=== PATIENT | male | born 1930 | race Caucasian/White ===

== ENCOUNTER 2016-06-13 10:41 | Day surgery (SDC) | payer MEDICARE ==
[2016-06-13] MEDS ORDERED: BUPIVACAINE HCL 0.5% MPF 10 ML SOL ONE (11:42)
[2016-06-13] MEDS ORDERED: TRIAMCINOLONE ACETONIDE 40 MG/ML SUS ONE (11:42)
[2016-06-13 12:14] VITALS: BP 159/70; PULSE 71; RESP 20; TEMP 98.3; O2SAT 97
== END 2016-06-13 12:25 | disposition home or self-care (01) | DRG 552 ==
LOC: SURG 10:41
PROVIDERS: ATTEND Nurse Anesthetist, Certified Registered
DX: M53.3 Sacrococcygeal disorders, not elsewhere classified (principal)
CPT/HCPCS: G0260; J3300

== ENCOUNTER 2016-08-15 11:49 | Day surgery (SDC) | payer MEDICARE ==
[2016-06-13 12:14] VITALS: O2SAT 97
[2016-08-15 12:39] VITALS: BP 130/75; PULSE 72; RESP 16; TEMP 97.8
== END 2016-08-15 13:00 | disposition home or self-care (01) | DRG 951 ==
LOC: SURG 11:49
PROVIDERS: ATTEND Nurse Anesthetist, Certified Registered
DX: Z53.09 Procedure and treatment not carried out because of other contraindication (principal)

== ENCOUNTER 2016-08-29 12:47 | Day surgery (SDC) | payer MEDICARE ==
[2016-08-29] MEDS ORDERED: TRIAMCINOLONE ACETONIDE 40 MG/ML SUS ONE (13:23)
[2016-08-29] MEDS ORDERED: LIDOCAINE HCL 1% MPF SOL ONE (13:35)
[2016-08-29 13:48] VITALS: BP 133/54; PULSE 80; RESP 18; TEMP 97.6; O2SAT 96
== END 2016-08-29 14:02 | disposition home or self-care (01) | DRG 552 ==
LOC: SURG 12:47
PROVIDERS: ATTEND Nurse Anesthetist, Certified Registered
DX: M48.06 Spinal stenosis, lumbar region (principal); M48.07 Spinal stenosis, lumbosacral region
CPT/HCPCS: J2001; J3300

== ENCOUNTER 2016-10-30 10:19 | Day surgery (SDC) | payer MEDICARE ==
[2016-10-30] MEDS ORDERED: FLEET ENEMA PR ONE ×2 (11:20→11:30)
[2016-10-30] MEDS ORDERED: PROPOFOL 10 MG/ML EMU IV ONE ×5 (12:18→13:06)
[2016-10-30] MEDS ORDERED: LIDOCAINE HCL 1% MPF SOL ONE (12:18)
[2016-10-30 14:13] VITALS: BP 127/70; PULSE 80; RESP 24; TEMP 97.2; O2SAT 94
== END 2016-10-30 15:05 | disposition home or self-care (01) | DRG 392 ==
LOC: SURG 10:19
PROVIDERS: ATTEND Surgery
DX: R19.4 Change in bowel habit (principal); D12.2 Benign neoplasm of ascending colon; Z80.0 Family history of malignant neoplasm of digestive organs
CPT/HCPCS: J2001; J2704

== ENCOUNTER 2016-11-03 11:17 | Emergency (ER) | payer MEDICARE ==
[2016-11-03] MEDS: SODIUM CHLORIDE 0.9% FLUSH 10 ML SOL IV PRN ×2 (11:30→14:12)
[2016-11-03 11:49] VITALS: RESP 20; TEMP 97.5
[2016-11-03] MEDS ORDERED: HYDROMORPHONE 1 MG/ML SYRINGE IV ONE (14:02)
[2016-11-03] MEDS ORDERED: HYDROMORPHONE 1 MG/ML SYRINGE ONE (14:06)
[2016-11-03 14:26] VITALS: BP 154/64; PULSE 76; O2SAT 98
== END 2016-11-03 15:00 | disposition short-term general hospital (02) | DRG 684 ==
LOC: ED 11:17
DX: N17.9 Acute kidney failure, unspecified (principal)
CPT/HCPCS: 99285; J1170

== ENCOUNTER 2016-11-11 10:30 | Emergency (ER) | payer MEDICARE ==
[2016-11-11] MEDS: SODIUM CHLORIDE 0.9% 1000 ML SOL IV SCH (11:09)
[2016-11-11 11:11] LABS: BASOPHILS % (AUTO) 0 % (0-3); EOSINOPHILS % (AUTO) 1 % (0-9); HEMATOCRIT 33 % (39-53); MEAN CORPUSCULAR HGB CONC 36.4 gm/dl (32.0-36.0); MEAN CORPUSCULAR VOLUME 82 fL (80-100); MONOCYTES % (AUTO) 9.5 % (0-12); NEUTROPHILS % (AUTO) 80.6 % (37-80)
[2016-11-11 11:19] LABS: CALCIUM 8.7 mg/dl (8.5-10.1); POTASSIUM 4.1 mMol/L (3.5-5.1)
[2016-11-11] MEDS: ACETAMINOPHEN 500 MG 500 MG TAB PO ONE (12:31)
[2016-11-11] MEDS ORDERED: ACETAMINOPHEN 500 MG 500 MG TAB ONE (12:32)
[2016-11-11 12:44] LABS: APPEARANCE,URINE Cloudy; BILIRUBIN,URINE NEGATIVE (NEGATIVE); COLOR,URINE Yellow; GLUCOSE, URINE (UA) NEGATIVE (NEGATIVE); KETONES,URINE NEGATIVE (NEGATIVE); LEUKOCYTE ESTERASE ,URINE 1+ (NEGATIVE); NITRATE,URINE NEGATIVE (NEGATIVE); OCCULT BLOOD,URINE 3+ (NEG-TRACE); PH,URINE 5.5; UROBILINOGEN,URINE 0.2 (0.2-1.0 EU)
[2016-11-11 12:56] LABS: RBC,URINE 40-60 (0-3AV/HPF)
[2016-11-11] MEDS ORDERED: SODIUM CHLORIDE 0.9% 50 ML 25 ML IV PRN (12:59)
[2016-11-11] MEDS ORDERED: CEFTRIAXONE 1 GM (PREMIX) 1 GM/50 ML SOL IV ONE (13:34)
[2016-11-11] MEDS: CEFTRIAXONE 1 GM PDS 1 GM in SODIUM CHLORIDE 0.9% 100 ML 100 ML IV ONE (13:38)
[2016-11-11 14:57] LABS: BASOPHILS % (AUTO) 1 % (0-3); EOSINOPHILS % (AUTO) 1 % (0-9); HEMATOCRIT 31 % (39-53); MEAN CORPUSCULAR HGB CONC 35.6 gm/dl (32.0-36.0); MEAN CORPUSCULAR VOLUME 83 fL (80-100); MONOCYTES % (AUTO) 8.2 % (0-12); NEUTROPHILS % (AUTO) 81.4 % (37-80)
[2016-11-11 15:48] VITALS: O2SAT 98
[2016-11-11] MEDS: SODIUM CHLORIDE 0.9% 1000ML 1,000 ML IV ONE (15:55)
[2016-11-11 17:33] VITALS: BP 168/68; PULSE 96; RESP 20; TEMP 97.7
== END 2016-11-11 17:26 | disposition short-term general hospital (02) | DRG 644 ==
LOC: ED 10:30
DX: E22.2 Syndrome of inappropriate secretion of antidiuretic hormone (principal); N39.0 Urinary tract infection, site not specified; C67.9 Malignant neoplasm of bladder, unspecified; E86.0 Dehydration; N28.9 Disorder of kidney and ureter, unspecified; D72.829 Elevated white blood cell count, unspecified
CPT/HCPCS: 36415; 80048; 81001; 83880; 85025; 87077; 87088; 87186; 99285; J0696